=== PATIENT | female | born 1980 | race Caucasian/White ===

== ENCOUNTER 2021-12-23 20:17 | Inpatient (IN) | payer MEDICAID ==
[~2021-12-23] VITALS: Ht 154.9 cm; Wt 79.8 kg
--- NOTE | 2021-12-23 20:24 | NUR ---
[facility] CALLED IV FLUIDS NS; URINE OUTPUT 2-3ML/KILO/HR. EKG Q2-3H IF ABNORMAL QTC OVER 500 MAG SULFATE 1-2G GO LYTELY 1-2L/ HR UNTIL STOOL CLEAR CHEM Q4H, CREATININE, SODIUM, LITHIUM LVLS UNTIL 2 DOWNTRENDING LVLS LITHIUM 4 OR HIGHER; DIALYSIS CHECK DRUG SCREEN
[2021-12-23] MEDS ORDERED: LIDOcaine 2% 10ml TOPICAL JELLY (Urojet) TP ONE (20:35)
[2021-12-23 20:51] LABS: ALANINE AMINOTRANSFERASE 55 U/L (12-78); ALBUMIN 4.4 G/DL (3.4-5.0); ALKALINE PHOSPHATASE 60 IU/L (46-116); ANION GAP 19 (8-16); ASPARTATE AMINO TRANSFERASE 193 U/L (10-37); BILIRUBIN,TOTAL 0.2 MG/DL (0.1-1.0); BLOOD UREA NITROGEN 6 MG/DL (7-18); BUN/CREATININE RATIO 4.6 (6.6-38.0); CALCIUM 8.8 MG/DL (8.5-10.1); CHLORIDE 104 MMOL/L (99-107); GLUCOSE 142 MG/DL (70-104); POTASSIUM 3.9 MMOL/L (3.5-5.1); SODIUM 143 MMOL/L (135-145); TOTAL CARBON DIOXIDE 19.9 MMOL/L (24-32); TOTAL PROTEIN 8.7 G/DL (6.4-8.2); eGFR 45 ML/MIN
[2021-12-23 20:54] LABS: BASOPHILS % (AUTO) 0.1 % (0-1); EOSINOPHILS % (AUTO) 0 % (0-6); HEMATOCRIT 47.5 % (35.0-45.0); HEMOGLOBIN 15.2 g/dl (12.0-16.0); LYMPHOCYTES # (AUTO) 0.9 X10'3 (1.1-4.8); LYMPHOCYTES % (AUTO) 2.9 % (21-51); MEAN CORPUSCULAR HEMOGLOBIN 28.4 PG (27.0-31.0); MEAN CORPUSCULAR HGB CONC 32.1 g/dL (33.0-36.5); MEAN CORPUSCULAR VOLUME 88.4 FL (78-98); MEAN PLATELET VOLUME 6.8 FL (7.4-10.4); MONOCYTES # (AUTO) 1.7 X10'3 (0-0.9); MONOCYTES % (AUTO) 5.3 % (2-12); NEUTROPHILS # (AUTO) 29.1 X10'3 (1.8-7.7); NEUTROPHILS % (AUTO) 91.7 % (42-75); PLATELET COUNT 523 X10'3 (140-440); RED BLOOD COUNT 5.37 X10'6 (4.20-5.60); RED CELL DISTRIBUTION WIDTH 15.1 % (11.5-14.5)
[2021-12-23 20:57] LABS: CLARITY,URINE CLEAR (Clear); COLOR,URINE YELLOW (Yellow); GLUCOSE, URINE NEGATIVE (Neg); KETONES,URINE NEGATIVE (Neg); LEUKOCYTE ESTERASE ,URINE NEGATIVE (Neg); NITRITES, URINE POSITIVE (Neg); OCCULT BLOOD,URINE LARGE (Neg); PH,URINE 6.5 (4.8-8.0); PROTEIN,URINE TRACE mg/dl (Neg); UROBILINOGEN,URINE 0.2 E.U/dL (0.2-1.0)
[2021-12-23 20:58] LABS: WHITE BLOOD COUNT 31.8 X10'3 (4.5-11.0)
[2021-12-23 21:03] LABS: UA COLLECTION TYPE FOLEY CATH
[2021-12-23] MEDS ORDERED: CefTRIAXone/D5W-Rocephin 1gm 50 ML IV ONE (21:10)
[2021-12-23 21:11] LABS: BACTERIA,URINE 4+ /HPF (Neg); SQUAMOUS EPITHELIAL CELL,UR NONE SEEN /LPF (FEW)
[2021-12-23 21:12] LABS: CAL OXALATE CRYSTALS FEW /HPF (NEGATIVE); TRANSITIONAL EPI CELLS,URINE FEW /HPF
[2021-12-23 21:13] LABS: ETHANOL 0.162 GM/DL (0.0-0.010)
[2021-12-23 21:22] LABS: URINE AMPHETAMINE SCREEN NEGATIVE (Neg); URINE BARBITUATE SCREEN NEGATIVE (Neg); URINE BENZODIAZEPINES SCREEN NEGATIVE (Neg); URINE CANNABINOID SCREEN NEGATIVE (Neg); URINE COCAINE SCREEN NEGATIVE (Neg); URINE METHADONE SCREEN NEGATIVE (Neg); URINE OPIATE SCREEN NEGATIVE (Neg); URINE PHENCYCLIDINE SCREEN NEGATIVE (Neg)
[2021-12-23 21:23] LABS: ACETAMINOPHEN < 2.0 UG/ML (10-30)
[2021-12-23 21:26] LABS: TOTAL CELLS COUNTED 100
[2021-12-23 21:28] LABS: PLATELET ESTIMATE INCREASED
[2021-12-23] MEDS ORDERED: normal saline 1000ML IV soln IVB ONE ×2 (21:40→21:45)
[2021-12-23 22:01] LABS: CREATINE KINASE 2574 U/L (26-192)
[2021-12-23] MEDS ORDERED: VANCOMYCIN 1,500MG in normal saline IV soln 300 ML IV ONE (22:30)
--- NOTE | 2021-12-23 23:58 | NUR ---
request made for tele med MD consult awaiting Dr Santana for admit orders on Pt. Pt is in a ST, 120's she is restless and spitting, vs as charted, pt seems confused, tea colored urine noted in meade cath. pt does not not know where she is, NG in place to low intermittent suction. Pt is a know intentional drug overdose with intent to self harm, bedside CROTCH PIECE BASTER in place for pts safety.
[2021-12-24] VITALS (24 sets, daily range): BP systolic 91–132; BP diastolic 3–90
--- NOTE | 2021-12-24 | NUR ---
Received pt from ER, pt being admitted with acute toxic encephalopathy secondary to polysubstance intake of lithium. ETOH, possible Latuda and gabapentin. Pt has a history of PTSD, anxiety and schizoaffective disorder. Pt is aggressive spitting and pulling at lines. pt is in soft wrist restraints, meade catheter to gravity dark poli colored urine. Bed side TIME STUDY TECHNICIAN in place for safety
[2021-12-24] MEDS ORDERED: ondansetron/PF 4mg/2ml inj IV PRN (00:20)
[2021-12-24] MEDS ORDERED: potassium Cl 20mEq/100mL bag 100 ML IV PRN (00:35)
[2021-12-24] MEDS ORDERED: thiamine 100mg/ml 2ml inj. IV ONE (00:35)
[2021-12-24] MEDS ORDERED: dexmedetomidin/NS 400mcg/100ml 100 ML IV SCH (00:35)
[2021-12-24] MEDS ORDERED: dextrose 5%-lactated ringers 1,000 ML IV SCH (00:35)
[2021-12-24] MEDS ORDERED: OLANZapine **IM** 10 mg inj. IM ONE (00:35)
[2021-12-24] MEDS ORDERED: magnesium 2GM in 50ml NS 50 ML IV PRN (00:35)
[2021-12-24] MEDS ORDERED: POTASSIUM BICARB 20meq eff tab 20 MEQ TABLET.EFF PO PRN ×2 (00:35)
[2021-12-24] MEDS ORDERED: magnesium 4gm in 100ml NS 100 ML IV PRN (00:35)
[2021-12-24] MEDS ORDERED: acetaminophen 325mg tablet NG PRN (00:35)
[2021-12-24] MEDS ORDERED: LIDOcaine 2% 10ml TOPICAL JELLY (Urojet) TP ONE (00:35)
[2021-12-24] MEDS ORDERED: LORazepam 2 mg/ml vial IV PRN (00:55)
[2021-12-24] MEDS: dexmedetomidine inj. 400 MCG in normal saline 100ml IV soln 96 ML IV SCH ×3 (01:22→19:08)
[2021-12-24 05:40] LABS: BASOPHILS % (AUTO) 0.1 % (0-1); EOSINOPHILS % (AUTO) 0 % (0-6); HEMATOCRIT 50.6 % (35.0-45.0); HEMOGLOBIN 16.5 g/dl (12.0-16.0); LYMPHOCYTES # (AUTO) 0.8 X10'3 (1.1-4.8); LYMPHOCYTES % (AUTO) 2.9 % (21-51); MEAN CORPUSCULAR HEMOGLOBIN 28.1 PG (27.0-31.0); MEAN CORPUSCULAR HGB CONC 32.7 g/dL (33.0-36.5); MEAN CORPUSCULAR VOLUME 85.9 FL (78-98); MEAN PLATELET VOLUME 6.9 FL (7.4-10.4); MONOCYTES # (AUTO) 1.3 X10'3 (0-0.9); MONOCYTES % (AUTO) 4.5 % (2-12); NEUTROPHILS # (AUTO) 26.4 X10'3 (1.8-7.7); NEUTROPHILS % (AUTO) 92.5 % (42-75); PLATELET COUNT 445 X10'3 (140-440); RED BLOOD COUNT 5.89 X10'6 (4.20-5.60); RED CELL DISTRIBUTION WIDTH 15.2 % (11.5-14.5)
[2021-12-24 05:46] LABS: WHITE BLOOD COUNT 28.5 X10'3 (4.5-11.0)
[2021-12-24 06:00] LABS: ALANINE AMINOTRANSFERASE 496 U/L (12-78); ALBUMIN/GLOBULIN RATIO 0.8 (1.1-1.5); ALKALINE PHOSPHATASE 56 IU/L (46-116); ANION GAP 14 (8-16); BILIRUBIN,TOTAL 0.3 MG/DL (0.1-1.0); BLOOD UREA NITROGEN 11 MG/DL (7-18); BUN/CREATININE RATIO 7.8 (6.6-38.0); CALCIUM 7.9 MG/DL (8.5-10.1); CHLORIDE 107 MMOL/L (99-107); CREATININE 1.41 MG/DL (0.40-0.90); GLUCOSE 153 MG/DL (70-104); MAGNESIUM 1.9 MG/DL (1.5-2.4); POTASSIUM 4.5 MMOL/L (3.5-5.1); SODIUM 140 MMOL/L (135-145); TOTAL CARBON DIOXIDE 19.5 MMOL/L (24-32); TOTAL PROTEIN 6.9 G/DL (6.4-8.2); eGFR 41 ML/MIN
[2021-12-24 06:07] LABS: ASPARTATE AMINO TRANSFERASE 1832 U/L (10-37)
--- NOTE | 2021-12-24 06:13 | NUR ---
report given to rec rn plan of care reviewed
[2021-12-24 06:24] LABS: PLATELET ESTIMATE INCREASED; TOTAL CELLS COUNTED 100
[2021-12-24] MEDS ORDERED: normal saline 1000ml 1,000 ML IV ONE ×3 (08:45→12:40)
[2021-12-24] MEDS: normal saline 1000ml 1,000 ML IV SCH ×4 (08:45→23:45)
[2021-12-24] MEDS: famotidine/PF 10 mg/ml inj IV SCH (08:54)
[2021-12-24] MEDS: thiamine 100mg/ml 2ml inj. IV SCH (08:54)
[2021-12-24] MEDS: piperacillin/tazo 3.375gm/50ml 50 ML IV SCH ×2 (08:54→17:27)
[2021-12-24] MEDS: enoxaparin 40mg/0.4ml syringe SUBCUT SCH (08:54)
[2021-12-24 10:29] LABS: CREATINE KINASE 93663 U/L (26-192)
[2021-12-24] MEDS ORDERED: PEG 3350/Na sulf,bicarb,Cl/KCl oral sol 4 liter bottle PO ONE (10:30)
[2021-12-24 12:16] LABS: ALANINE AMINOTRANSFERASE 515 U/L (12-78); ALBUMIN 2.1 G/DL (3.4-5.0); ALBUMIN/GLOBULIN RATIO 0.6 (1.1-1.5); ALKALINE PHOSPHATASE 43 IU/L (46-116); ANION GAP 8 (8-16); BILIRUBIN,TOTAL 0.4 MG/DL (0.1-1.0); BLOOD UREA NITROGEN 14 MG/DL (7-18); BUN/CREATININE RATIO 9.2 (6.6-38.0); CALCIUM 6.8 MG/DL (8.5-10.1); CHLORIDE 115 MMOL/L (99-107); CREATININE 1.53 MG/DL (0.40-0.90); GLUCOSE 106 MG/DL (70-104); POTASSIUM 4.6 MMOL/L (3.5-5.1); SODIUM 144 MMOL/L (135-145); TOTAL CARBON DIOXIDE 21.2 MMOL/L (24-32); TOTAL PROTEIN 5.5 G/DL (6.4-8.2); eGFR 37 ML/MIN
[2021-12-24 12:18] LABS: MAGNESIUM 1.6 MG/DL (1.5-2.4)
[2021-12-24 12:37] LABS: ASPARTATE AMINO TRANSFERASE 1582 U/L (10-37)
[2021-12-24 12:45] LABS: CLARITY,URINE CLOUDY (Clear); GLUCOSE, URINE NEGATIVE (Neg); KETONES,URINE NEGATIVE (Neg); LEUKOCYTE ESTERASE ,URINE TRACE (Neg); NITRITES, URINE NEGATIVE (Neg); OCCULT BLOOD,URINE LARGE (Neg); PH,URINE 6.5 (4.8-8.0); PROTEIN,URINE 100 mg/dl (Neg); UROBILINOGEN,URINE 0.2 E.U/dL (0.2-1.0)
[2021-12-24 12:46] LABS: COLOR,URINE AMBER (Yellow); UA COLLECTION TYPE NON-SPECIFIED
[2021-12-24 12:57] LABS: CREATINE KINASE 74330 U/L (26-192)
[2021-12-24 13:04] LABS: COARSE GRANULAR CAST >30 /LPF (NEGATIVE); MUCUS STRANDS MODERATE /LPF (Neg); SQUAMOUS EPITHELIAL CELL,UR MODERATE /LPF (FEW)
[2021-12-24 13:05] LABS: BACTERIA,URINE 2+ /HPF (Neg); RBC,URINE 0-2 /HPF (0-2); TRANSITIONAL EPI CELLS,URINE FEW /HPF
[2021-12-24 13:06] LABS: WBC CLUMPS,URINE FEW /HPF (NEGATIVE)
[2021-12-24 13:42] LABS: UA EOSINOPHILS NO EOS /HPF
[2021-12-24 16:28] LABS: ALANINE AMINOTRANSFERASE 556 U/L (12-78); ALBUMIN 2.2 G/DL (3.4-5.0); ALBUMIN/GLOBULIN RATIO 0.7 (1.1-1.5); ALKALINE PHOSPHATASE 41 IU/L (46-116); ANION GAP 7 (8-16); BILIRUBIN,TOTAL 0.5 MG/DL (0.1-1.0); BLOOD UREA NITROGEN 19 MG/DL (7-18); BUN/CREATININE RATIO 12.3 (6.6-38.0); CALCIUM 6.9 MG/DL (8.5-10.1); CHLORIDE 118 MMOL/L (99-107); CREATININE 1.55 MG/DL (0.40-0.90); GLUCOSE 122 MG/DL (70-104); POTASSIUM 4.3 MMOL/L (3.5-5.1); SODIUM 146 MMOL/L (135-145); TOTAL CARBON DIOXIDE 21.4 MMOL/L (24-32); TOTAL PROTEIN 5.4 G/DL (6.4-8.2); eGFR 37 ML/MIN
[2021-12-24 16:32] LABS: ASPARTATE AMINO TRANSFERASE 1632 U/L (10-37)
[2021-12-24] MEDS: ondansetron/PF 4mg/2ml inj IV PRN (17:24)
--- NOTE | 2021-12-24 19:54 | NUR ---
Called and spoke with Dr. Santana to report critical lithium level 3.93. No new orders in regard to level since there is another level for am. Also spoke to him in regards to last lactic acid of 2.2. ordered new lactic acid level for am. See charting for details.
[2021-12-24] MEDS ORDERED: CefTRIAXone 2gm/D5W 50ml BAG 50 ML IV SCH (21:00)
[2021-12-24 22:29] LABS: ALANINE AMINOTRANSFERASE 666 U/L (12-78); ALBUMIN 2.3 G/DL (3.4-5.0); ALBUMIN/GLOBULIN RATIO 0.7 (1.1-1.5); ALKALINE PHOSPHATASE 37 IU/L (46-116); ANION GAP 3 (8-16); BILIRUBIN,TOTAL 0.5 MG/DL (0.1-1.0); BLOOD UREA NITROGEN 23 MG/DL (7-18); BUN/CREATININE RATIO 13.8 (6.6-38.0); CALCIUM 6.8 MG/DL (8.5-10.1); CHLORIDE 118 MMOL/L (99-107); CREATININE 1.67 MG/DL (0.40-0.90); GLUCOSE 104 MG/DL (70-104); POTASSIUM 3.3 MMOL/L (3.5-5.1); SODIUM 147 MMOL/L (135-145); TOTAL CARBON DIOXIDE 26.3 MMOL/L (24-32); TOTAL PROTEIN 5.5 G/DL (6.4-8.2); eGFR 34 ML/MIN
[2021-12-24 22:31] LABS: ASPARTATE AMINO TRANSFERASE 1911 U/L (10-37)
--- NOTE | 2021-12-24 22:35 | NUR ---
Jhon from Poison control called to check on pt. Updated him on latest labs and pt status. He recommended to continue IV fluids and possible dialysis if lithium level continues to go up. Informed him that next rechecks are tomorrow am.
[2021-12-25] VITALS (24 sets, daily range): BP systolic 98–138; BP diastolic 51–85
[2021-12-25] MEDS: piperacillin/tazo 3.375gm/50ml 50 ML IV SCH ×3 (00:50→16:00)
[2021-12-25] MEDS: dexmedetomidine inj. 400 MCG in normal saline 100ml IV soln 96 ML IV SCH ×2 (00:51→05:17)
[2021-12-25] MEDS: normal saline 1000ml 1,000 ML IV SCH ×2 (02:50→08:10)
[2021-12-25 06:10] LABS: BASOPHILS % (AUTO) 0 % (0-1); EOSINOPHILS % (AUTO) 0 % (0-6); HEMOGLOBIN 11.9 g/dl (12.0-16.0); LYMPHOCYTES # (AUTO) 1.3 X10'3 (1.1-4.8); LYMPHOCYTES % (AUTO) 6.7 % (21-51); MEAN CORPUSCULAR HGB CONC 32.3 g/dL (33.0-36.5); MEAN CORPUSCULAR VOLUME 86.6 FL (78-98); MEAN PLATELET VOLUME 7.2 FL (7.4-10.4); MONOCYTES # (AUTO) 1.1 X10'3 (0-0.9); MONOCYTES % (AUTO) 5.5 % (2-12); NEUTROPHILS # (AUTO) 17.2 X10'3 (1.8-7.7); NEUTROPHILS % (AUTO) 87.8 % (42-75); PLATELET COUNT 268 X10'3 (140-440); RED BLOOD COUNT 4.27 X10'6 (4.20-5.60); RED CELL DISTRIBUTION WIDTH 14.9 % (11.5-14.5); WHITE BLOOD COUNT 19.6 X10'3 (4.5-11.0)
[2021-12-25 06:28] LABS: ALANINE AMINOTRANSFERASE 606 U/L (12-78); ALBUMIN 2.1 G/DL (3.4-5.0); ALBUMIN/GLOBULIN RATIO 0.7 (1.1-1.5); ALKALINE PHOSPHATASE 36 IU/L (46-116); ANION GAP 2 (8-16); BILIRUBIN,TOTAL 0.4 MG/DL (0.1-1.0); BLOOD UREA NITROGEN 22 MG/DL (7-18); BUN/CREATININE RATIO 14.2 (6.6-38.0); CHLORIDE 120 MMOL/L (99-107); CREATININE 1.55 MG/DL (0.40-0.90); GLUCOSE 108 MG/DL (70-104); MAGNESIUM 1.7 MG/DL (1.5-2.4); PHOSPHORUS 3.2 MG/DL (2.3-4.5); SODIUM 148 MMOL/L (135-145); TOTAL CARBON DIOXIDE 25.6 MMOL/L (24-32); eGFR 37 ML/MIN
[2021-12-25 06:32] LABS: ASPARTATE AMINO TRANSFERASE 1365 U/L (10-37)
[2021-12-25 06:33] LABS: POTASSIUM 2.9 MMOL/L (3.5-5.1)
--- NOTE | 2021-12-25 06:34 | NUR ---
1800 Patient in room ICU 2040. I have received report from RACHNA Aragon and had the opportunity to ask questions and assume patient care. Sitter at bedside. Restraints in place and needed. Pt had sitter at bedside overnight. Restraints continue to be needed. Pt confused to alert and oriented x2 at times. Several BMs after golytely. 604 Report given to RACHNA Lezama. Questions answered. Drips verified. Restraints remain in place as well as sitter. Precedex remains at 1.2. Pt in no acute distress at time of handoff.
--- NOTE | 2021-12-25 07:00 | NUR ---
Critical Potassium 2.9; Dr. Lozano aware; will replace per protocol.
[2021-12-25] MEDS: thiamine 100mg/ml 2ml inj. IV SCH (07:42)
[2021-12-25] MEDS: famotidine/PF 10 mg/ml inj IV SCH (07:42)
[2021-12-25] MEDS: enoxaparin 40mg/0.4ml syringe SUBCUT SCH (07:43)
[2021-12-25 10:30] LABS: ALANINE AMINOTRANSFERASE 598 U/L (12-78); ALBUMIN/GLOBULIN RATIO 0.6 (1.1-1.5); ALKALINE PHOSPHATASE 38 IU/L (46-116); ANION GAP 0 (8-16); BILIRUBIN,TOTAL 0.4 MG/DL (0.1-1.0); BLOOD UREA NITROGEN 22 MG/DL (7-18); BUN/CREATININE RATIO 15.5 (6.6-38.0); CHLORIDE 120 MMOL/L (99-107); CREATININE 1.42 MG/DL (0.40-0.90); GLUCOSE 81 MG/DL (70-104); POTASSIUM 3.2 MMOL/L (3.5-5.1); SODIUM 144 MMOL/L (135-145); TOTAL PROTEIN 5.1 G/DL (6.4-8.2); eGFR 41 ML/MIN
[2021-12-25 10:33] LABS: ASPARTATE AMINO TRANSFERASE 1293 U/L (10-37)
[2021-12-25] MEDS: sodium chloride 0.45% 1,000 ML IV SCH ×2 (10:49→17:18)
--- NOTE | 2021-12-25 10:55 | NUR ---
Noted pt with EtOH .162 on admit, currently receiving routine Thiamine. D/w MD recommendation for routine MVI and Folic acid, MD agrees. Clinical pharmacist and bedside RN present. Per MD NGT to be discontinued and diet to be advanced to regular. Will continue to follow closely and monitor need for nutrition intervention pending trends in PO intake. Addendum: 12/25/21 at [address] Amended: Links added.
[2021-12-25] MEDS: potassium Cl 20 mEq SR tablet PO PRN ×3 (11:43→20:30)
--- NOTE | 2021-12-25 12:23 | NUR ---
Critical [place] level >4.6, Dr. Lozano and Dr. Renee notified. Per nephrology, will look into Dialysis.
[2021-12-25] MEDS ORDERED: heparin 1,000unit/ml 10ml vial 10 ML IV ONE (12:55)
[2021-12-25] MEDS ORDERED: albumin (human) 25% 100ml IV 100 ML IV PRN (12:55)
[2021-12-25] MEDS ORDERED: normal saline 1000ml 250 ML IV PRN (12:55)
[2021-12-25] MEDS ORDERED: heparin 1,000 units/ml 10ml inj HE ONE ×2 (13:10)
[2021-12-25] MEDS ORDERED: PRAZ1CAP5 PO (15:39)
[2021-12-25] MEDS ORDERED: IBUP-1985 PO (15:39)
[2021-12-25] MEDS ORDERED: LURA20TA PO (15:39)
[2021-12-25] MEDS ORDERED: GABA600T13 PO (15:39)
[2021-12-25] MEDS ORDERED: LIT300C PO (15:39)
[2021-12-25] MEDS ORDERED: CYCL-1 PO (15:39)
[2021-12-25] MEDS ORDERED: HYDR-3686 PO (15:39)
--- NOTE | 2021-12-25 16:54 | NUR ---
Patient receiving Dialysis; hold Zosyn and recheck scheduled [place] level and other labs for the end of dialysis per MD.
--- NOTE | 2021-12-25 18:20 | NUR ---
Patient in room ICU 2040. I have received report from RACHNA Lezama and had the opportunity to ask questions and assume patient care. Patients boyfriend , Michi, at bedside. HD in progress by industrial sales representative. Patient is cooporative and pleasent. Bedside sitter at bedside
--- NOTE | 2021-12-25 18:22 | NUR ---
Problems reprioritized. Patient report given, questions answered & plan of care reviewed with Sanjuanita BRISCOE.
[2021-12-25 19:42] LABS: APTT 39 SECONDS (22-32)
[2021-12-25 19:48] LABS: ALANINE AMINOTRANSFERASE 632 U/L (12-78); ALBUMIN 2.2 G/DL (3.4-5.0); ALBUMIN/GLOBULIN RATIO 0.7 (1.1-1.5); ALKALINE PHOSPHATASE 49 IU/L (46-116); ANION GAP 5 (8-16); BILIRUBIN,TOTAL 0.5 MG/DL (0.1-1.0); BLOOD UREA NITROGEN 6 MG/DL (7-18); BUN/CREATININE RATIO 9.2 (6.6-38.0); CALCIUM 7.5 MG/DL (8.5-10.1); CHLORIDE 104 MMOL/L (99-107); CREATININE 0.65 MG/DL (0.40-0.90); GLUCOSE 80 MG/DL (70-104); POTASSIUM 3.3 MMOL/L (3.5-5.1); SODIUM 139 MMOL/L (135-145); TOTAL CARBON DIOXIDE 29.6 MMOL/L (24-32); TOTAL PROTEIN 5.4 G/DL (6.4-8.2); eGFR > 90 ML/MIN
[2021-12-25 19:49] LABS: ASPARTATE AMINO TRANSFERASE 1235 U/L (10-37)
[2021-12-25] MEDS ORDERED: bumetanide 0.25mg/ml 4ml vial IV SCH (20:10)
--- NOTE | 2021-12-25 20:19 | NUR ---
Patient assessed, found to have severe pain and tightness to bilateral lower extremities. Pedal pulses are present and palpable with good capillary refill. Dr. Santana called and notified of change in patient condition. Orders received for vascular doppler arterial and venous bilateral lower extremities. Order new CPK level. MD wants patient legs propped up on pillows now. Bumex 2mg IV once now. decrease fluids to 75 ml/hr.
[2021-12-25] MEDS ORDERED: gelatin sponge, absorbable (Gelfoam 100) sponge TP ONE (20:20)
--- NOTE | 2021-12-25 21:00 | NUR ---
Cesar catheter site to right IJ re dressed. Dressing saturated site oozing with large incomplete clot in place. Gelatin sponge placed at insertion site and new dressing applied.
[2021-12-25 21:57] LABS: CREATINE KINASE 43965 U/L (26-192)
--- NOTE | 2021-12-25 22:00 | NUR ---
bio medical technician at bedside for doppler study. Findings of DVT to right proximal posterior tibial vein. Patient extremely agitated and unable to remain still for the study, crying out in pain and discomfort. Confused speech pattern noted. Dr. Santana called and findings reported. Order for Heparin drip for DVT protocol and Precedex.
[2021-12-25] MEDS ORDERED: heparin 10,000 units/1 ML INJ IV ONE (22:15)
[2021-12-25] MEDS ORDERED: HEPARIN SOD,PORK IN 0.45% NACL 250 ML IV SCH (22:15)
[2021-12-25] MEDS ORDERED: heparin 10,000 units/1 ML INJ IV PRN (22:15)
[2021-12-25] MEDS: dexmedetomidin/NS 400mcg/100ml 100 ML IV SCH (22:39)
[2021-12-25] MEDS: ondansetron/PF 4mg/2ml inj IV PRN (22:54)
[2021-12-26] VITALS (23 sets, daily range): BP systolic 84–129; BP diastolic 49–83
[2021-12-26] MEDS: piperacillin/tazo 3.375gm/50ml 50 ML IV SCH ×4 (00:18→23:06)
--- NOTE | 2021-12-26 02:11 | NUR ---
Patient appears to be resting comfortably. Will awaken/ startle with any patient care activities. Patient is able to settle back down quickly. Sitter at bedside.
[2021-12-26] MEDS: sodium chloride 0.45% 1,000 ML IV SCH ×2 (03:12→09:01)
--- NOTE | 2021-12-26 05:31 | NUR ---
Cesar dressing saturated with blood. Dressing changed, gel foam placed. new PIV to right wrist 20 ga.
[2021-12-26 06:07] LABS: ALANINE AMINOTRANSFERASE 557 U/L (12-78); ALBUMIN 2.2 G/DL (3.4-5.0); ALBUMIN/GLOBULIN RATIO 0.7 (1.1-1.5); ALKALINE PHOSPHATASE 58 IU/L (46-116); ANION GAP 1 (8-16); ASPARTATE AMINO TRANSFERASE 925 U/L (10-37); BILIRUBIN,TOTAL 0.7 MG/DL (0.1-1.0); BLOOD UREA NITROGEN 10 MG/DL (7-18); BUN/CREATININE RATIO 7.9 (6.6-38.0); CALCIUM 7.2 MG/DL (8.5-10.1); CHLORIDE 108 MMOL/L (99-107); CREATININE 1.26 MG/DL (0.40-0.90); GLUCOSE 92 MG/DL (70-104); MAGNESIUM 1.7 MG/DL (1.5-2.4); PHOSPHORUS 3.1 MG/DL (2.3-4.5); POTASSIUM 3.5 MMOL/L (3.5-5.1); SODIUM 142 MMOL/L (135-145); TOTAL CARBON DIOXIDE 32.9 MMOL/L (24-32); TOTAL PROTEIN 5.3 G/DL (6.4-8.2); eGFR 47 ML/MIN
[2021-12-26 06:17] LABS: BASOPHILS % (AUTO) 0.2 % (0-1); EOSINOPHILS # (AUTO) 0.1 X10'3 (0-0.9); EOSINOPHILS % (AUTO) 0.5 % (0-6); HEMATOCRIT 31.8 % (35.0-45.0); HEMOGLOBIN 10.5 g/dl (12.0-16.0); LYMPHOCYTES # (AUTO) 1.8 X10'3 (1.1-4.8); LYMPHOCYTES % (AUTO) 11.4 % (21-51); MEAN CORPUSCULAR HEMOGLOBIN 28.3 PG (27.0-31.0); MEAN CORPUSCULAR HGB CONC 33.1 g/dL (33.0-36.5); MEAN CORPUSCULAR VOLUME 85.7 FL (78-98); MEAN PLATELET VOLUME 7.5 FL (7.4-10.4); MONOCYTES # (AUTO) 0.6 X10'3 (0-0.9); MONOCYTES % (AUTO) 3.7 % (2-12); NEUTROPHILS # (AUTO) 13.2 X10'3 (1.8-7.7); NEUTROPHILS % (AUTO) 84.2 % (42-75); PLATELET COUNT 214 X10'3 (140-440); RED BLOOD COUNT 3.71 X10'6 (4.20-5.60); RED CELL DISTRIBUTION WIDTH 14.5 % (11.5-14.5); WHITE BLOOD COUNT 15.7 X10'3 (4.5-11.0)
--- NOTE | 2021-12-26 06:21 | NUR ---
Problems reprioritized. Patient report given, questions answered & plan of care reviewed with RACHNA Mackay.
--- NOTE | 2021-12-26 06:30 | NUR ---
PTT came back at 122. Heparin turned off per protocol. Will draw PTT and turn back on at 0830.
[2021-12-26 07:32] LABS: CREATINE KINASE 34936 U/L (26-192)
[2021-12-26] MEDS: thiamine 100mg/ml 2ml inj. IV SCH (08:33)
[2021-12-26] MEDS: famotidine/PF 10 mg/ml inj IV SCH (08:33)
[2021-12-26] MEDS: dexmedetomidin/NS 400mcg/100ml 100 ML IV SCH (09:05)
--- NOTE | 2021-12-26 09:42 | NUR ---
[place] level 4.[address] Renee. He will order Dialysis.
[2021-12-26] MEDS ORDERED: heparin 1,000unit/ml 10ml vial 10 ML IV ONE (10:15)
[2021-12-26] MEDS ORDERED: normal saline 1000ml 250 ML IV PRN (10:15)
[2021-12-26] MEDS ORDERED: albumin (human) 25% 100ml IV 100 ML IV PRN (10:15)
[2021-12-26] MEDS ORDERED: heparin 1,000 units/ml 10ml inj HE ONE ×2 (10:20)
--- NOTE | 2021-12-26 12:28 | NUR ---
Pt still not appropriate for conversation/psychosocial assessment. Conferred with CM to ensure pt is on suicide precautions and has sitter. [facility] recommends pt be referred to [facility] for evaluation once she is medically clear. Addendum: 12/26/21 at 1230 by Karyna Styles SS Amended: Links added.
--- NOTE | 2021-12-26 14:30 | NUR ---
Initial: Pt admit DX sepsis, UTI, rhabdomyolysis, [place] toxicity, and intentional meds OD w/ etoh 0.162 also on admit per EMR. Pt to receive HD again today given increasing [place] levels per RN at rounds. Pt receiving routine thiamine w/ PO 25-50% two meals refusing third past 24 hours on regular diet no issues chewing/swallowing per EMR/RN this AM. Per RN, pt in significant pain last night which likely impacted refusal of dinner tray. Pt remains AOx2 receiving minimum assistance w/ meals per EMR. LBM 12/26 following golytely 12/24 per EMR. Will monitor for PO trends and further nutrition intervention needs this admit. Rec: 1. continue regular diet; encourage PO 2. monitor PO trends for ONS needs 3. routine thiamine, folic acid, and MVI for etoh 4. bowel care per rx 5. weekly wts Addendum: 12/26/21 at [address] Amended: Links added.
--- NOTE | 2021-12-26 17:25 | NUR ---
will bring in [facility] when he goes back home and returns to town. Hopefully tomorrow he said.
--- NOTE | 2021-12-26 18:15 | NUR ---
RECEIVED REPORT FROM OUTGOING NURSE. PT IS ALERT AND ORIENTEDX3. RESTING IN BED AND PT STATED SHE WAS ANXIOUS AT THE MOMENT. MILD TREMORS ON BOTH HANDS NOTED. EXPLAINED PAIN AND ANXIETY MGMT. SEIZURE PRECAUTIONS MAINTAINED. SITTER AT BEDSIDE FOR SAFETY. WILL CONT TO MONITOR.
[2021-12-26] MEDS: hydrOXYzine 25 MG tablet PO PRN (18:55)
[2021-12-26] MEDS: HYDROcodone/acetaminophen 5mg/325mg tablet PO PRN (18:55)
[2021-12-26] MEDS: LURASIDONE 20 MG PO SCH (21:00)
--- NOTE | 2021-12-26 21:50 | NUR ---
STILL OOZING FROM RT IJ HD CATHETER. CHANGED DRESSING. BEING CONFUSED. REORIENTATION GIVEN FREQ. SITTER AT BEDSIDE.
--- NOTE | 2021-12-26 22:08 | NUR ---
TALKED TO POISON CONTROL AND GAVE THEM UPDATES. THEY SUGGESTED TO DRAW LITHIUM LEVEL NOW INSTEAD OF DOING IN AM.
[2021-12-27] VITALS (23 sets, daily range): BP systolic 87–112; BP diastolic 48–69
[2021-12-27] MEDS ORDERED: gelatin sponge, absorbable (Gelfoam 100) sponge TP ONE (00:55)
[2021-12-27] MEDS: HYDROcodone/acetaminophen 5mg/325mg tablet PO PRN ×3 (03:46→16:20)
[2021-12-27] MEDS: sodium chloride 0.45% 1,000 ML IV SCH ×2 (05:52→21:59)
[2021-12-27 06:16] LABS: BASOPHILS % (AUTO) 0.2 % (0-1); EOSINOPHILS # (AUTO) 0.3 X10'3 (0-0.9); HEMATOCRIT 29.6 % (35.0-45.0); HEMOGLOBIN 9.6 g/dl (12.0-16.0); LYMPHOCYTES % (AUTO) 6.6 % (21-51); MEAN CORPUSCULAR HGB CONC 32.3 g/dL (33.0-36.5); MEAN CORPUSCULAR VOLUME 86.9 FL (78-98); MEAN PLATELET VOLUME 7.2 FL (7.4-10.4); MONOCYTES # (AUTO) 0.8 X10'3 (0-0.9); MONOCYTES % (AUTO) 5.6 % (2-12); NEUTROPHILS # (AUTO) 12.5 X10'3 (1.8-7.7); NEUTROPHILS % (AUTO) 85.6 % (42-75); PLATELET COUNT 197 X10'3 (140-440); RED BLOOD COUNT 3.41 X10'6 (4.20-5.60); RED CELL DISTRIBUTION WIDTH 14.6 % (11.5-14.5); WHITE BLOOD COUNT 14.6 X10'3 (4.5-11.0)
--- NOTE | 2021-12-27 06:20 | NUR ---
NOT IN DISTRESS NOTED. REPORT GIVEN TO ONCOMING NURSE.
[2021-12-27 06:25] LABS: ALANINE AMINOTRANSFERASE 498 U/L (12-78); ALBUMIN 2.4 G/DL (3.4-5.0); ALBUMIN/GLOBULIN RATIO 0.8 (1.1-1.5); ALKALINE PHOSPHATASE 70 IU/L (46-116); ANION GAP 2 (8-16); ASPARTATE AMINO TRANSFERASE 622 U/L (10-37); BILIRUBIN,TOTAL 0.6 MG/DL (0.1-1.0); BLOOD UREA NITROGEN 10 MG/DL (7-18); BUN/CREATININE RATIO 7.5 (6.6-38.0); CALCIUM 7.6 MG/DL (8.5-10.1); CHLORIDE 106 MMOL/L (99-107); CREATININE 1.33 MG/DL (0.40-0.90); GLUCOSE 111 MG/DL (70-104); MAGNESIUM 1.9 MG/DL (1.5-2.4); PHOSPHORUS 2.7 MG/DL (2.3-4.5); POTASSIUM 3.5 MMOL/L (3.5-5.1); SODIUM 142 MMOL/L (135-145); TOTAL CARBON DIOXIDE 33.6 MMOL/L (24-32); TOTAL PROTEIN 5.4 G/DL (6.4-8.2); eGFR 44 ML/MIN
[2021-12-27] MEDS: ondansetron/PF 4mg/2ml inj IV PRN ×2 (08:16→17:33)
[2021-12-27] MEDS: hydrOXYzine 25 MG tablet PO PRN ×3 (08:17→23:41)
[2021-12-27] MEDS: gabapentin 300mg capsule PO SCH (08:18)
[2021-12-27] MEDS: enoxaparin 40mg/0.4ml syringe SUBCUT SCH (08:19)
[2021-12-27] MEDS: famotidine/PF 10 mg/ml inj IV SCH (08:19)
[2021-12-27] MEDS: thiamine 100mg/ml 2ml inj. IV SCH (08:19)
[2021-12-27] MEDS: piperacillin/tazo 3.375gm/50ml 50 ML IV SCH ×3 (08:40→23:41)
[2021-12-27 09:33] LABS: CREATINE KINASE 16187 U/L (26-192)
[2021-12-27 11:19] LABS: HBSAG SCREEN Negative (Negative)
[2021-12-27] MEDS ORDERED: haloperidol lactate 5mg/ml inj IM PRN (18:00)
[2021-12-27] MEDS ORDERED: haloperidol 5mg tablet PO PRN (18:00)
[2021-12-27] MEDS ORDERED: LORazepam 2 mg/ml vial IV PRN (18:00)
[2021-12-27] MEDS: chlordiazePOXIDE 25mg capsule PO SCH ×2 (18:14→20:00)
[2021-12-27] MEDS: LURASIDONE 20 MG PO SCH (20:01)
--- NOTE | 2021-12-27 22:16 | NUR ---
PT IS RESTING IN BED WITHOUT DISTRESS. SITTER AT BEDSIDE FOR SAFETY. REPORT GIVEN TO DAIANA BRISCOE.
[2021-12-28] VITALS (20 sets, daily range): BP systolic 101–138; BP diastolic 54–87
[2021-12-28] MEDS: HYDROcodone/acetaminophen 5mg/325mg tablet PO PRN ×4 (00:54→20:55)
[2021-12-28] MEDS: chlordiazePOXIDE 25mg capsule PO SCH ×4 (01:54→19:35)
[2021-12-28] MEDS: ondansetron/PF 4mg/2ml inj IV PRN ×2 (03:20→12:27)
[2021-12-28] MEDS: proCHLORperazine 10 MG/2 ml inj IV PRN ×3 (03:53→16:39)
--- NOTE | 2021-12-28 06:30 | NUR ---
Patient in room ICU 2040. I have received report from Arlyn BRISCOE and had the opportunity to ask questions and assume patient care. Pt semi fowlers in bed, sitter at bedside, pt alert and oriented x4. pt endorses improved mood, decreased anxiety. Pt endorses fleeting thoughts of SI, but states "they just fly through my brain. i have no desire to act on thoughts. they are of overdose. after this experience I would never attempt again." discussed coping tools, anxiety grouding exercises. pt somewhat receptive. reinfocement needed. safety measures in place.
--- NOTE | 2021-12-28 06:38 | NUR ---
Problems reprioritized. Patient report given, questions answered & plan of care reviewed with LUZ MARIA BRISCOE.
[2021-12-28 06:50] LABS: BASOPHILS # (AUTO) 0.1 X10'3 (0-0.2); BASOPHILS % (AUTO) 0.3 % (0-1); EOSINOPHILS # (AUTO) 0.5 X10'3 (0-0.9); EOSINOPHILS % (AUTO) 2.7 % (0-6); HEMATOCRIT 35.3 % (35.0-45.0); HEMOGLOBIN 11.7 g/dl (12.0-16.0); LYMPHOCYTES # (AUTO) 1.6 X10'3 (1.1-4.8); LYMPHOCYTES % (AUTO) 8.2 % (21-51); MEAN CORPUSCULAR VOLUME 84.9 FL (78-98); MEAN PLATELET VOLUME 7.7 FL (7.4-10.4); MONOCYTES # (AUTO) 0.9 X10'3 (0-0.9); NEUTROPHILS # (AUTO) 15.8 X10'3 (1.8-7.7); NEUTROPHILS % (AUTO) 83.8 % (42-75); PLATELET COUNT 234 X10'3 (140-440); RED BLOOD COUNT 4.17 X10'6 (4.20-5.60); RED CELL DISTRIBUTION WIDTH 14.6 % (11.5-14.5); WHITE BLOOD COUNT 18.9 X10'3 (4.5-11.0)
[2021-12-28 07:13] LABS: ALANINE AMINOTRANSFERASE 400 U/L (12-78); ALBUMIN 2.2 G/DL (3.4-5.0); ALBUMIN/GLOBULIN RATIO 0.7 (1.1-1.5); ALKALINE PHOSPHATASE 98 IU/L (46-116); ANION GAP 7 (8-16); ASPARTATE AMINO TRANSFERASE 333 U/L (10-37); BILIRUBIN,TOTAL 0.5 MG/DL (0.1-1.0); BLOOD UREA NITROGEN 9 MG/DL (7-18); BUN/CREATININE RATIO 7.4 (6.6-38.0); CALCIUM 8.5 MG/DL (8.5-10.1); CHLORIDE 102 MMOL/L (99-107); CREATININE 1.21 MG/DL (0.40-0.90); GLUCOSE 107 MG/DL (70-104); MAGNESIUM 2.1 MG/DL (1.5-2.4); PHOSPHORUS 3.6 MG/DL (2.3-4.5); POTASSIUM 3.4 MMOL/L (3.5-5.1); SODIUM 137 MMOL/L (135-145); TOTAL CARBON DIOXIDE 28.5 MMOL/L (24-32); TOTAL PROTEIN 5.4 G/DL (6.4-8.2); eGFR 49 ML/MIN
[2021-12-28 07:14] LABS: CREATINE KINASE 6434 U/L (26-192)
[2021-12-28] MEDS: famotidine/PF 10 mg/ml inj IV SCH (08:53)
[2021-12-28] MEDS: thiamine 100mg/ml 2ml inj. IV SCH (08:53)
[2021-12-28] MEDS: gabapentin 300mg capsule PO SCH (08:53)
[2021-12-28] MEDS: piperacillin/tazo 3.375gm/50ml 50 ML IV SCH ×3 (08:54→16:07)
[2021-12-28] MEDS: enoxaparin 40mg/0.4ml syringe SUBCUT SCH (08:54)
[2021-12-28] MEDS: sodium chloride 0.45% 1,000 ML IV SCH ×2 (08:55→21:52)
--- NOTE | 2021-12-28 11:49 | NUR ---
Dr. Gracia to see pt new clarification of orders of thiamine and famotidine to p.o. route, change lavon to olivia Stafford for PT.
[2021-12-28] MEDS ORDERED: LURA60TA PO (13:25)
--- NOTE | 2021-12-28 14:12 | NUR ---
Pt with new fluid filled blisters to BLE, and change to urine. Dr. Basil Jones. "RE: Sanjuanita Liu: 2040. Sudden appearance of fluid filled blisters on BLE. Also, urine milky white s/p meade catheter removal with urgency and frequency. - Bibiana BRISCOE ICU #[id number]" pt denies itchiness or pain to blisters. Addendum: 12/28/21 at 1413 by Bibiana Harvey RN p.o. fluids encouraged.
[2021-12-28] MEDS: hydrOXYzine 25 MG tablet PO PRN (16:08)
--- NOTE | 2021-12-28 16:30 | NUR ---
poison control called for update. con't POC per poison control. will continue to check in until lithium level <1.2.
--- NOTE | 2021-12-28 16:42 | NUR ---
meade cath d/c'd at 930am. tip intact. p.o. fluids encouraged. pt voided by noon, however urine purulent white. continued to encourage p.o. fluids. two more additional episodes of milky white urine until urine cleared. urine now light yellow, non malodorous. pt endorses urgency but frequency has subsided. afebrile.
--- NOTE | 2021-12-28 17:15 | NUR ---
Patient report given, questions answered & plan of care reviewed with Kia BRISCOE in preperation for moving pt to room 3010.
[2021-12-28] MEDS: potassium Cl 20 mEq SR tablet PO PRN ×2 (17:19→20:31)
--- NOTE | 2021-12-28 17:52 | NUR ---
pt's latuda dose handed to rubia BRISCOE on Telemetry floor to be administered after pt eats
--- NOTE | 2021-12-28 18:00 | NUR ---
Patient arrived from ICU. Vitals taken and all are stable. Settled patient into room and report given to Kyra BRISCOE. Patient was still eating her supper so latuda given to next nurse to administer
[2021-12-29] VITALS (7 sets, daily range): BP systolic 115–126; BP diastolic 75–91
[2021-12-29] MEDS: chlordiazePOXIDE 25mg capsule PO SCH ×4 (02:12→19:59)
[2021-12-29] MEDS: sodium chloride 0.45% 1,000 ML IV SCH (02:26)
[2021-12-29] MEDS: potassium Cl 20 mEq SR tablet PO PRN (04:35)
[2021-12-29] MEDS: gabapentin 300mg capsule PO SCH (07:35)
[2021-12-29] MEDS: piperacillin/tazo 3.375gm/50ml 50 ML IV SCH ×2 (07:35→17:00)
[2021-12-29] MEDS: thiamine 100mg tablet PO SCH (07:36)
[2021-12-29] MEDS: famotidine 20mg tablet PO SCH (07:36)
[2021-12-29] MEDS: enoxaparin 40mg/0.4ml syringe SUBCUT SCH (07:37)
[2021-12-29] MEDS: HYDROcodone/acetaminophen 5mg/325mg tablet PO PRN ×3 (07:37→19:59)
[2021-12-29 08:38] LABS: CREATINE KINASE 8534 U/L (26-192)
--- NOTE | 2021-12-29 08:50 | NUR ---
Reassessment: Pt continues on Regular diet w/ improvement in PO intake yesterday 12/28, had 75% of meals. If PO trends continue then pt will likely be meeting est needs. Pt documented as A&O x 4 now and independent w/ meals. No further HD per nephrology. LBM 12/27. Will continue to monitor. Rec: 1. continue regular diet; encourage PO 2. monitor PO trends for ONS needs 3. routine thiamine, folic acid, and MVI for etoh 4. bowel care per rx 5. weekly wts Addendum: 12/29/21 at [address] Amended: Links added.
[2021-12-29 09:24] LABS: BASOPHILS # (AUTO) 0.1 X10'3 (0-0.2); BASOPHILS % (AUTO) 0.4 % (0-1); EOSINOPHILS # (AUTO) 0.6 X10'3 (0-0.9); HEMATOCRIT 36.9 % (35.0-45.0); LYMPHOCYTES # (AUTO) 2.4 X10'3 (1.1-4.8); LYMPHOCYTES % (AUTO) 12.7 % (21-51); MEAN CORPUSCULAR HEMOGLOBIN 27.7 PG (27.0-31.0); MEAN CORPUSCULAR HGB CONC 32.6 g/dL (33.0-36.5); MEAN CORPUSCULAR VOLUME 85.1 FL (78-98); MEAN PLATELET VOLUME 8.3 FL (7.4-10.4); MONOCYTES # (AUTO) 1.2 X10'3 (0-0.9); MONOCYTES % (AUTO) 6.2 % (2-12); NEUTROPHILS # (AUTO) 14.5 X10'3 (1.8-7.7); NEUTROPHILS % (AUTO) 77.7 % (42-75); PLATELET COUNT 234 X10'3 (140-440); RED BLOOD COUNT 4.34 X10'6 (4.20-5.60); RED CELL DISTRIBUTION WIDTH 14.2 % (11.5-14.5); WHITE BLOOD COUNT 18.7 X10'3 (4.5-11.0)
[2021-12-29 09:39] LABS: ALANINE AMINOTRANSFERASE 492 U/L (12-78); ALBUMIN 2.5 G/DL (3.4-5.0); ALBUMIN/GLOBULIN RATIO 0.8 (1.1-1.5); ALKALINE PHOSPHATASE 114 IU/L (46-116); ANION GAP 8 (8-16); ASPARTATE AMINO TRANSFERASE 384 U/L (10-37); BILIRUBIN,TOTAL 0.4 MG/DL (0.1-1.0); BLOOD UREA NITROGEN 10 MG/DL (7-18); BUN/CREATININE RATIO 9.8 (6.6-38.0); CALCIUM 8.8 MG/DL (8.5-10.1); CHLORIDE 105 MMOL/L (99-107); CREATININE 1.02 MG/DL (0.40-0.90); GLUCOSE 122 MG/DL (70-104); POTASSIUM 3.9 MMOL/L (3.5-5.1); SODIUM 136 MMOL/L (135-145); TOTAL CARBON DIOXIDE 22.9 MMOL/L (24-32); TOTAL PROTEIN 5.7 G/DL (6.4-8.2); eGFR 59 ML/MIN
[2021-12-29] MEDS ORDERED: LORazepam 2 mg/ml vial IV PRN (18:00)
--- NOTE | 2021-12-29 18:00 | NUR ---
Received form from pharmacy requesting patient to bring in her latuda from home--patient's boyfriend isn't available today to bring more in for the pharmacy. Paged Dr Gracia to ask if he wants us to have him bring it tomorrow or to D/C the order because the form states it is a med error if not administered. No callback received. Will relay to oncoming shift to follow up and ask again tomorrow
[2021-12-29] MEDS: hydrOXYzine 25 MG tablet PO PRN (23:07)
[2021-12-30] MEDS: piperacillin/tazo 3.375gm/50ml 50 ML IV SCH ×3 (00:12→16:12)
[2021-12-30] MEDS: sodium chloride 0.45% 1,000 ML IV SCH ×2 (00:12→14:03)
[2021-12-30 02:00] VITALS: BP 109/68
[2021-12-30] MEDS: chlordiazePOXIDE 25mg capsule PO SCH ×4 (03:40→19:26)
[2021-12-30] MEDS: HYDROcodone/acetaminophen 5mg/325mg tablet PO PRN ×4 (04:59→19:28)
[2021-12-30 06:00] VITALS: BP 113/77
[2021-12-30 07:52] LABS: BASOPHILS # (AUTO) 0.1 X10'3 (0-0.2); BASOPHILS % (AUTO) 0.7 % (0-1); EOSINOPHILS # (AUTO) 0.5 X10'3 (0-0.9); EOSINOPHILS % (AUTO) 4.7 % (0-6); HEMATOCRIT 29.9 % (35.0-45.0); HEMOGLOBIN 9.8 g/dl (12.0-16.0); LYMPHOCYTES # (AUTO) 2.3 X10'3 (1.1-4.8); LYMPHOCYTES % (AUTO) 20.8 % (21-51); MEAN CORPUSCULAR HEMOGLOBIN 28.1 PG (27.0-31.0); MEAN CORPUSCULAR HGB CONC 32.7 g/dL (33.0-36.5); MEAN PLATELET VOLUME 8.3 FL (7.4-10.4); MONOCYTES # (AUTO) 1.1 X10'3 (0-0.9); MONOCYTES % (AUTO) 9.6 % (2-12); NEUTROPHILS # (AUTO) 7.1 X10'3 (1.8-7.7); NEUTROPHILS % (AUTO) 64.2 % (42-75); PLATELET COUNT 219 X10'3 (140-440); RED BLOOD COUNT 3.48 X10'6 (4.20-5.60); RED CELL DISTRIBUTION WIDTH 14.6 % (11.5-14.5)
[2021-12-30 08:16] LABS: ALANINE AMINOTRANSFERASE 413 U/L (12-78); ALBUMIN 2.3 G/DL (3.4-5.0); ALBUMIN/GLOBULIN RATIO 0.8 (1.1-1.5); ALKALINE PHOSPHATASE 65 IU/L (46-116); ANION GAP 6 (8-16); ASPARTATE AMINO TRANSFERASE 282 U/L (10-37); BILIRUBIN,TOTAL 0.4 MG/DL (0.1-1.0); BLOOD UREA NITROGEN 13 MG/DL (7-18); BUN/CREATININE RATIO 14.1 (6.6-38.0); CALCIUM 8.7 MG/DL (8.5-10.1); CHLORIDE 109 MMOL/L (99-107); CREATININE 0.92 MG/DL (0.40-0.90); GLUCOSE 108 MG/DL (70-104); POTASSIUM 3.9 MMOL/L (3.5-5.1); SODIUM 142 MMOL/L (135-145); TOTAL PROTEIN 5.1 G/DL (6.4-8.2); eGFR 67 ML/MIN
[2021-12-30 08:41] LABS: CREATINE KINASE 5238 U/L (26-192)
[2021-12-30] MEDS: gabapentin 300mg capsule PO SCH (08:45)
[2021-12-30] MEDS: famotidine 20mg tablet PO SCH (08:45)
[2021-12-30] MEDS: thiamine 100mg tablet PO SCH (08:46)
[2021-12-30] MEDS: enoxaparin 40mg/0.4ml syringe SUBCUT SCH (08:46)
[2021-12-30] MEDS: LORazepam 1 MG tablet PO PRN ×2 (09:12→16:20)
[2021-12-30] MEDS: nicotine 14mg patch - 24hr TD SCH (10:25)
[2021-12-30 11:00] VITALS: BP 122/74
[2021-12-30 15:00] VITALS: BP 132/97
[2021-12-30 18:00] VITALS: BP 127/87
[2021-12-30 22:00] VITALS: BP 106/66
[2021-12-31] MEDS: piperacillin/tazo 3.375gm/50ml 50 ML IV SCH ×2 (00:11→08:45)
[2021-12-31] MEDS: chlordiazePOXIDE 25mg capsule PO SCH ×4 (01:50→19:24)
[2021-12-31 02:00] VITALS: BP 116/60
[2021-12-31] MEDS: sodium chloride 0.45% 1,000 ML IV SCH ×3 (03:12→23:39)
[2021-12-31 06:06] VITALS: BP 120/63
[2021-12-31 08:27] LABS: CREATINE KINASE 2096 U/L (26-192)
[2021-12-31] MEDS: nicotine 14mg patch - 24hr TD SCH (08:45)
[2021-12-31] MEDS: thiamine 100mg tablet PO SCH (08:46)
[2021-12-31] MEDS: famotidine 20mg tablet PO SCH (08:46)
[2021-12-31] MEDS: gabapentin 300mg capsule PO SCH (08:46)
[2021-12-31] MEDS: enoxaparin 40mg/0.4ml syringe SUBCUT SCH (08:46)
[2021-12-31 09:28] LABS: BASOPHILS # (AUTO) 0.1 X10'3 (0-0.2); BASOPHILS % (AUTO) 0.9 % (0-1); EOSINOPHILS # (AUTO) 0.5 X10'3 (0-0.9); EOSINOPHILS % (AUTO) 3.9 % (0-6); HEMATOCRIT 30.8 % (35.0-45.0); HEMOGLOBIN 10.2 g/dl (12.0-16.0); LYMPHOCYTES # (AUTO) 2.3 X10'3 (1.1-4.8); LYMPHOCYTES % (AUTO) 19.9 % (21-51); MEAN CORPUSCULAR HGB CONC 33.1 g/dL (33.0-36.5); MEAN CORPUSCULAR VOLUME 84.6 FL (78-98); MONOCYTES # (AUTO) 1.2 X10'3 (0-0.9); MONOCYTES % (AUTO) 9.9 % (2-12); NEUTROPHILS # (AUTO) 7.7 X10'3 (1.8-7.7); NEUTROPHILS % (AUTO) 65.4 % (42-75); PLATELET COUNT 319 X10'3 (140-440); RED BLOOD COUNT 3.65 X10'6 (4.20-5.60); RED CELL DISTRIBUTION WIDTH 14.8 % (11.5-14.5); WHITE BLOOD COUNT 11.7 X10'3 (4.5-11.0)
[2021-12-31 09:36] LABS: ALANINE AMINOTRANSFERASE 465 U/L (12-78); ALBUMIN 2.3 G/DL (3.4-5.0); ALBUMIN/GLOBULIN RATIO 0.8 (1.1-1.5); ALKALINE PHOSPHATASE 73 IU/L (46-116); ANION GAP 7 (8-16); ASPARTATE AMINO TRANSFERASE 280 U/L (10-37); BILIRUBIN,TOTAL 0.3 MG/DL (0.1-1.0); BLOOD UREA NITROGEN 13 MG/DL (7-18); BUN/CREATININE RATIO 13.1 (6.6-38.0); CALCIUM 8.7 MG/DL (8.5-10.1); CHLORIDE 105 MMOL/L (99-107); CREATININE 0.99 MG/DL (0.40-0.90); GLUCOSE 113 MG/DL (70-104); POTASSIUM 3.5 MMOL/L (3.5-5.1); SODIUM 137 MMOL/L (135-145); TOTAL PROTEIN 5.2 G/DL (6.4-8.2); eGFR 62 ML/MIN
[2021-12-31] MEDS: acetaminophen 325mg tablet PO PRN (10:39)
[2021-12-31] MEDS: LORazepam 1 MG tablet PO PRN ×2 (10:39→21:16)
[2021-12-31 11:04] LABS: PLATELET ESTIMATE NORMAL; TOTAL CELLS COUNTED 100; TOXIC VACUOLATION 1+
[2021-12-31 11:11] VITALS: BP 148/96
[2021-12-31] MEDS ORDERED: baclofen 10mg tablet PO PRN (15:30)
[2021-12-31] MEDS: HYDROcodone/acetaminophen 5mg/325mg tablet PO PRN ×2 (17:47→23:03)
[2021-12-31] MEDS: hydrOXYzine 25 MG tablet PO PRN ×2 (17:47→23:03)
[2021-12-31 18:00] VITALS: BP 137/84
[2021-12-31] MEDS ORDERED: LORazepam 2 mg/ml vial IV PRN (18:00)
[2021-12-31 21:20] VITALS: BP 132/88
[2022-01-01] MEDS: chlordiazePOXIDE 25mg capsule PO SCH ×4 (02:10→20:00)
[2022-01-01 02:14] VITALS: BP 120/86
[2022-01-01] MEDS: HYDROcodone/acetaminophen 5mg/325mg tablet PO PRN ×3 (05:05→17:52)
[2022-01-01 06:00] VITALS: BP 132/96
[2022-01-01 06:49] LABS: BASOPHILS # (AUTO) 0.1 X10'3 (0-0.2); BASOPHILS % (AUTO) 0.9 % (0-1); EOSINOPHILS # (AUTO) 0.5 X10'3 (0-0.9); EOSINOPHILS % (AUTO) 4.1 % (0-6); HEMATOCRIT 31.1 % (35.0-45.0); HEMOGLOBIN 10.5 g/dl (12.0-16.0); LYMPHOCYTES # (AUTO) 2.4 X10'3 (1.1-4.8); LYMPHOCYTES % (AUTO) 21.8 % (21-51); MEAN CORPUSCULAR HEMOGLOBIN 28.6 PG (27.0-31.0); MEAN CORPUSCULAR HGB CONC 33.9 g/dL (33.0-36.5); MEAN CORPUSCULAR VOLUME 84.4 FL (78-98); MEAN PLATELET VOLUME 7.4 FL (7.4-10.4); MONOCYTES % (AUTO) 8.6 % (2-12); NEUTROPHILS # (AUTO) 7.2 X10'3 (1.8-7.7); NEUTROPHILS % (AUTO) 64.6 % (42-75); PLATELET COUNT 337 X10'3 (140-440); RED BLOOD COUNT 3.68 X10'6 (4.20-5.60); RED CELL DISTRIBUTION WIDTH 14.6 % (11.5-14.5); WHITE BLOOD COUNT 11.2 X10'3 (4.5-11.0)
[2022-01-01 07:23] LABS: TOTAL CELLS COUNTED 100
[2022-01-01 07:24] LABS: PLATELET ESTIMATE NORMAL
[2022-01-01 07:32] LABS: ALANINE AMINOTRANSFERASE 408 U/L (12-78); ALBUMIN 2.4 G/DL (3.4-5.0); ALBUMIN/GLOBULIN RATIO 0.9 (1.1-1.5); ALKALINE PHOSPHATASE 63 IU/L (46-116); ANION GAP 7 (8-16); ASPARTATE AMINO TRANSFERASE 175 U/L (10-37); BILIRUBIN,TOTAL 0.3 MG/DL (0.1-1.0); BLOOD UREA NITROGEN 11 MG/DL (7-18); BUN/CREATININE RATIO 12.1 (6.6-38.0); CALCIUM 8.2 MG/DL (8.5-10.1); CHLORIDE 109 MMOL/L (99-107); CREATININE 0.91 MG/DL (0.40-0.90); GLUCOSE 108 MG/DL (70-104); POTASSIUM 3.5 MMOL/L (3.5-5.1); SODIUM 140 MMOL/L (135-145); TOTAL CARBON DIOXIDE 24.3 MMOL/L (24-32); TOTAL PROTEIN 5.2 G/DL (6.4-8.2); eGFR 68 ML/MIN
[2022-01-01 07:47] LABS: CREATINE KINASE 1127 U/L (26-192)
[2022-01-01] MEDS: thiamine 100mg tablet PO SCH (08:14)
[2022-01-01] MEDS: famotidine 20mg tablet PO SCH (08:14)
[2022-01-01] MEDS: gabapentin 300mg capsule PO SCH (08:14)
[2022-01-01] MEDS: enoxaparin 40mg/0.4ml syringe SUBCUT SCH (08:15)
[2022-01-01] MEDS: nicotine 14mg patch - 24hr TD SCH (08:15)
--- NOTE | 2022-01-01 09:29 | NUR ---
Reassessment: Pt continues on Regular diet w/ avg intake 47% x 10 meals partially meeting needs. Pt can benefit from Ensure High protein TID to assist w/ meeting needs. Pt is noted to be having headaches which may effect desire to eat. [facility] 12/29. Will continue to monitor. Rec: 1. continue regular diet; encourage PO 2. Ensure High Protein TID; pending MD verification 3. routine thiamine, folic acid, and MVI for etoh 4. bowel care per rx 5. weekly wts Addendum: 01/01/22 at [address] Amended: Links added.
[2022-01-01 11:00] VITALS: BP 133/86
[2022-01-01] MEDS: LORazepam 1 MG tablet PO PRN (11:32)
[2022-01-01 15:00] VITALS: BP 150/98
[2022-01-01 18:00] VITALS: BP 134/74
--- NOTE | 2022-01-01 18:15 | NUR ---
Patient in room PCU 3010. I have received report from Glory RN and had the opportunity to ask questions and assume patient care.
--- NOTE | 2022-01-01 18:35 | NUR ---
Problems reprioritized. Patient report given, questions answered & plan of care reviewed with RACHNA Lan.
[2022-01-01] MEDS: sodium chloride 0.45% 1,000 ML IV SCH (19:59)
--- NOTE | 2022-01-01 20:11 | NUR ---
pt was resting and did not want to be disturbed for meds or assessment.
[2022-01-01 22:00] VITALS: BP 114/70
[2022-01-02] MEDS: HYDROcodone/acetaminophen 5mg/325mg tablet PO PRN ×5 (00:44→22:03)
[2022-01-02] MEDS: chlordiazePOXIDE 25mg capsule PO SCH ×4 (02:03→20:53)
[2022-01-02 06:00] VITALS: BP 123/74
--- NOTE | 2022-01-02 06:00 | NUR ---
REVIEWED PRODUCE ASSOCIATE ASSESSMENT AND IN AGREEMENT.
--- NOTE | 2022-01-02 06:10 | NUR ---
Problems reprioritized. Patient report given, questions answered & plan of care reviewed with Glory RN.
[2022-01-02] MEDS: enoxaparin 40mg/0.4ml syringe SUBCUT SCH (07:48)
[2022-01-02] MEDS: gabapentin 300mg capsule PO SCH (07:48)
[2022-01-02] MEDS: famotidine 20mg tablet PO SCH (07:48)
[2022-01-02] MEDS: thiamine 100mg tablet PO SCH (07:48)
[2022-01-02] MEDS: nicotine 14mg patch - 24hr TD SCH (07:49)
[2022-01-02 08:13] LABS: BASOPHILS # (AUTO) 0.1 X10'3 (0-0.2); BASOPHILS % (AUTO) 0.7 % (0-1); EOSINOPHILS # (AUTO) 0.4 X10'3 (0-0.9); EOSINOPHILS % (AUTO) 3.9 % (0-6); HEMATOCRIT 26.6 % (35.0-45.0); LYMPHOCYTES # (AUTO) 2.5 X10'3 (1.1-4.8); LYMPHOCYTES % (AUTO) 26.8 % (21-51); MEAN CORPUSCULAR HEMOGLOBIN 28.7 PG (27.0-31.0); MEAN CORPUSCULAR HGB CONC 33.7 g/dL (33.0-36.5); MEAN PLATELET VOLUME 7.3 FL (7.4-10.4); MONOCYTES # (AUTO) 0.7 X10'3 (0-0.9); NEUTROPHILS # (AUTO) 5.6 X10'3 (1.8-7.7); NEUTROPHILS % (AUTO) 60.6 % (42-75); PLATELET COUNT 389 X10'3 (140-440); RED BLOOD COUNT 3.13 X10'6 (4.20-5.60); RED CELL DISTRIBUTION WIDTH 15.1 % (11.5-14.5); WHITE BLOOD COUNT 9.2 X10'3 (4.5-11.0)
[2022-01-02 08:50] LABS: ALANINE AMINOTRANSFERASE 302 U/L (12-78); ALBUMIN 2.4 G/DL (3.4-5.0); ALBUMIN/GLOBULIN RATIO 0.9 (1.1-1.5); ALKALINE PHOSPHATASE 60 IU/L (46-116); ANION GAP 9 (8-16); ASPARTATE AMINO TRANSFERASE 97 U/L (10-37); BILIRUBIN,TOTAL 0.3 MG/DL (0.1-1.0); BLOOD UREA NITROGEN 12 MG/DL (7-18); BUN/CREATININE RATIO 12.5 (6.6-38.0); CALCIUM 8.1 MG/DL (8.5-10.1); CHLORIDE 110 MMOL/L (99-107); CREATINE KINASE 655 U/L (26-192); CREATININE 0.96 MG/DL (0.40-0.90); GLUCOSE 97 MG/DL (70-104); MAGNESIUM 1.9 MG/DL (1.5-2.4); POTASSIUM 3.6 MMOL/L (3.5-5.1); SODIUM 145 MMOL/L (135-145); TOTAL CARBON DIOXIDE 26.2 MMOL/L (24-32); TOTAL PROTEIN 5.2 G/DL (6.4-8.2); eGFR 64 ML/MIN
[2022-01-02] MEDS: hydrOXYzine 25 MG tablet PO PRN (10:10)
[2022-01-02 11:00] VITALS: BP 141/90
[2022-01-02 11:28] LABS: PLATELET ESTIMATE NORMAL; TOTAL CELLS COUNTED 100
[2022-01-02 11:29] LABS: ANISOCYTOSIS 1+
[2022-01-02 11:33] LABS: POLYCHROMASIA FEW
[2022-01-02] MEDS: sodium chloride 0.45% 1,000 ML IV SCH (12:46)
[2022-01-02 15:00] VITALS: BP 121/94
[2022-01-02 18:00] VITALS: BP 146/79
--- NOTE | 2022-01-02 18:15 | NUR ---
Problems reprioritized. Patient report given, questions answered & plan of care reviewed with RACHNA Lan.
--- NOTE | 2022-01-02 18:30 | NUR ---
Patient in room PCU 3010. I have received report from Glory RN and had the opportunity to ask questions and assume patient care.
[2022-01-02 22:00] VITALS: BP 140/98
--- NOTE | 2022-01-02 22:30 | NUR ---
Page Sent PAGER ID: [phone] MESSAGE: [id number]: Sanjuanita Liu: Pt requesting RX for melatonin for sleep. Thank you Edyta HERNANDEZ, ext [phone]
--- NOTE | 2022-01-02 22:59 | NUR ---
Called Dr Acevedo who ordered melatonin 3mg po hs prn sleep.
[2022-01-02] MEDS: Melatonin 3mg tablet PO PRN (23:24)
[2022-01-03 02:00] VITALS: BP 117/79
[2022-01-03] MEDS: chlordiazePOXIDE 25mg capsule PO SCH ×4 (02:57→20:09)
[2022-01-03] MEDS: HYDROcodone/acetaminophen 5mg/325mg tablet PO PRN ×5 (03:06→21:41)
[2022-01-03 06:00] VITALS: BP 136/82
[2022-01-03 06:34] LABS: BASOPHILS # (AUTO) 0.1 X10'3 (0-0.2); BASOPHILS % (AUTO) 0.6 % (0-1); EOSINOPHILS # (AUTO) 0.3 X10'3 (0-0.9); EOSINOPHILS % (AUTO) 3.2 % (0-6); HEMOGLOBIN 8.2 g/dl (12.0-16.0); LYMPHOCYTES # (AUTO) 2.7 X10'3 (1.1-4.8); LYMPHOCYTES % (AUTO) 28.3 % (21-51); MEAN CORPUSCULAR HEMOGLOBIN 29.2 PG (27.0-31.0); MEAN CORPUSCULAR HGB CONC 34.2 g/dL (33.0-36.5); MEAN CORPUSCULAR VOLUME 85.3 FL (78-98); MEAN PLATELET VOLUME 7.1 FL (7.4-10.4); MONOCYTES # (AUTO) 0.7 X10'3 (0-0.9); MONOCYTES % (AUTO) 6.9 % (2-12); NEUTROPHILS # (AUTO) 5.8 X10'3 (1.8-7.7); PLATELET COUNT 402 X10'3 (140-440); RED BLOOD COUNT 2.82 X10'6 (4.20-5.60); RED CELL DISTRIBUTION WIDTH 15.1 % (11.5-14.5); WHITE BLOOD COUNT 9.5 X10'3 (4.5-11.0)
--- NOTE | 2022-01-03 06:34 | NUR ---
REVIEWED HAZARDOUS WASTE MATERIAL TECHNICIAN ASSESSMENT AND IN AGREEMENT.
--- NOTE | 2022-01-03 06:48 | NUR ---
Problems reprioritized. Patient report given, questions answered & plan of care reviewed with Mel BRISCOE.
[2022-01-03 06:55] LABS: ALANINE AMINOTRANSFERASE 235 U/L (12-78); ALBUMIN 2.3 G/DL (3.4-5.0); ALBUMIN/GLOBULIN RATIO 0.9 (1.1-1.5); ALKALINE PHOSPHATASE 50 IU/L (46-116); ANION GAP 7 (8-16); ASPARTATE AMINO TRANSFERASE 66 U/L (10-37); BILIRUBIN,TOTAL 0.3 MG/DL (0.1-1.0); BLOOD UREA NITROGEN 9 MG/DL (7-18); BUN/CREATININE RATIO 10.1 (6.6-38.0); CALCIUM 7.9 MG/DL (8.5-10.1); CHLORIDE 112 MMOL/L (99-107); CREATINE KINASE 465 U/L (26-192); CREATININE 0.89 MG/DL (0.40-0.90); GLUCOSE 97 MG/DL (70-104); MAGNESIUM 1.9 MG/DL (1.5-2.4); PHOSPHORUS 4.2 MG/DL (2.3-4.5); POTASSIUM 3.3 MMOL/L (3.5-5.1); SODIUM 143 MMOL/L (135-145); TOTAL CARBON DIOXIDE 23.9 MMOL/L (24-32); TOTAL PROTEIN 4.8 G/DL (6.4-8.2); eGFR 70 ML/MIN
[2022-01-03 07:09] LABS: TOTAL CELLS COUNTED 100
[2022-01-03 07:10] LABS: PLATELET ESTIMATE NORMAL; POLYCHROMASIA 1+
[2022-01-03] MEDS: thiamine 100mg tablet PO SCH (07:25)
[2022-01-03] MEDS: gabapentin 300mg capsule PO SCH (07:25)
[2022-01-03] MEDS: famotidine 20mg tablet PO SCH (07:25)
[2022-01-03] MEDS: nicotine 14mg patch - 24hr TD SCH (07:25)
[2022-01-03] MEDS: enoxaparin 40mg/0.4ml syringe SUBCUT SCH (07:26)
[2022-01-03] MEDS: potassium Cl 20 mEq SR tablet PO PRN ×2 (07:26→20:09)
[2022-01-03 11:00] VITALS: BP 123/69
[2022-01-03 15:00] VITALS: BP 133/77
[2022-01-03 18:00] VITALS: BP 144/69
[2022-01-03] MEDS ORDERED: furosemide 10 MG/1 ML 10ml inj IV ONE (18:00)
[2022-01-03] MEDS ORDERED: PERFLUTREN PROTEIN-A MICROSPHR (Optison) 0.22 MG/ML 3ML VIAL IV ONE (18:00)
--- NOTE | 2022-01-03 18:30 | NUR ---
Patient in room PCU 3010. I have received report from Mel BRISCOE and had the opportunity to ask questions and assume patient care.
--- NOTE | 2022-01-03 18:31 | NUR ---
Problems reprioritized. Patient report given, questions answered & plan of care reviewed with Edyta LESTER.
[2022-01-03] MEDS: Melatonin 3mg tablet PO PRN (20:08)
[2022-01-03] MEDS: LORazepam 1 MG tablet PO PRN (20:09)
[2022-01-03 22:00] VITALS: BP 128/87
[2022-01-04 02:00] VITALS: BP 137/75
[2022-01-04] MEDS: HYDROcodone/acetaminophen 5mg/325mg tablet PO PRN ×5 (02:14→20:23)
[2022-01-04] MEDS: potassium Cl 20 mEq SR tablet PO PRN (02:14)
[2022-01-04] MEDS: chlordiazePOXIDE 25mg capsule PO SCH ×4 (02:14→20:22)
--- NOTE | 2022-01-04 04:22 | NUR ---
AGREE WITH METAL POURER PHYSICAL ASSESSMENT. PT DENIES SUICIDAL IDEATIONS AT THIS TIME.
[2022-01-04 06:00] VITALS: BP 129/76
--- NOTE | 2022-01-04 06:30 | NUR ---
Problems reprioritized. Patient report given, questions answered & plan of care reviewed with Mel BRISCOE.
[2022-01-04 06:45] LABS: BASOPHILS % (AUTO) 0.6 % (0-1); EOSINOPHILS # (AUTO) 0.2 X10'3 (0-0.9); HEMATOCRIT 23.3 % (35.0-45.0); HEMOGLOBIN 7.9 g/dl (12.0-16.0); LYMPHOCYTES % (AUTO) 25.3 % (21-51); MEAN CORPUSCULAR HEMOGLOBIN 28.9 PG (27.0-31.0); MEAN CORPUSCULAR HGB CONC 33.8 g/dL (33.0-36.5); MEAN CORPUSCULAR VOLUME 85.4 FL (78-98); MEAN PLATELET VOLUME 6.9 FL (7.4-10.4); MONOCYTES # (AUTO) 0.5 X10'3 (0-0.9); MONOCYTES % (AUTO) 5.9 % (2-12); NEUTROPHILS # (AUTO) 5.2 X10'3 (1.8-7.7); NEUTROPHILS % (AUTO) 65.2 % (42-75); PLATELET COUNT 448 X10'3 (140-440); RED BLOOD COUNT 2.73 X10'6 (4.20-5.60); RED CELL DISTRIBUTION WIDTH 15.5 % (11.5-14.5); WHITE BLOOD COUNT 7.9 X10'3 (4.5-11.0)
[2022-01-04 06:51] LABS: ALANINE AMINOTRANSFERASE 207 U/L (12-78); ALBUMIN 2.4 G/DL (3.4-5.0); ALBUMIN/GLOBULIN RATIO 0.9 (1.1-1.5); ALKALINE PHOSPHATASE 70 IU/L (46-116); ANION GAP 7 (8-16); ASPARTATE AMINO TRANSFERASE 61 U/L (10-37); BILIRUBIN,TOTAL 0.2 MG/DL (0.1-1.0); BLOOD UREA NITROGEN 9 MG/DL (7-18); BUN/CREATININE RATIO 10.8 (6.6-38.0); CALCIUM 8.1 MG/DL (8.5-10.1); CHLORIDE 110 MMOL/L (99-107); CREATINE KINASE 390 U/L (26-192); CREATININE 0.83 MG/DL (0.40-0.90); GLUCOSE 89 MG/DL (70-104); MAGNESIUM 1.8 MG/DL (1.5-2.4); PHOSPHORUS 4.6 MG/DL (2.3-4.5); POTASSIUM 3.6 MMOL/L (3.5-5.1); SODIUM 142 MMOL/L (135-145); TOTAL CARBON DIOXIDE 25.3 MMOL/L (24-32); TOTAL PROTEIN 5.1 G/DL (6.4-8.2); eGFR 75 ML/MIN
[2022-01-04] MEDS: gabapentin 300mg capsule PO SCH (07:13)
[2022-01-04] MEDS: folic acid 1mg tablet PO SCH (07:14)
[2022-01-04] MEDS: thiamine 100mg tablet PO SCH (07:14)
[2022-01-04] MEDS: multivitamins, therapeutics tablet PO SCH (07:14)
[2022-01-04] MEDS: enoxaparin 40mg/0.4ml syringe SUBCUT SCH (07:15)
[2022-01-04] MEDS: furosemide 40mg/4ml inj IV SCH ×2 (07:15→20:22)
[2022-01-04] MEDS: nicotine 14mg patch - 24hr TD SCH (07:15)
[2022-01-04] MEDS: famotidine 20mg tablet PO SCH (07:15)
[2022-01-04] MEDS: LORazepam 1 MG tablet PO PRN ×2 (07:17→20:23)
[2022-01-04 09:51] LABS: PLATELET ESTIMATE INCREASED; POLYCHROMASIA 1+; TOTAL CELLS COUNTED 100
[2022-01-04 09:52] LABS: SCHISTOCYTES FEW
[2022-01-04 11:00] VITALS: BP 125/77
--- NOTE | 2022-01-04 11:35 | NUR ---
Message: [phone] would like something for herpes on back, c/o itching would like topical cream. thank you, Mel BRISCOE PCU
[2022-01-04 15:00] VITALS: BP 127/84
[2022-01-04 18:30] VITALS: BP 128/78
[2022-01-04] MEDS: Melatonin 3mg tablet PO PRN (20:24)
[2022-01-04 22:00] VITALS: BP 130/77
[2022-01-05] MEDS: HYDROcodone/acetaminophen 5mg/325mg tablet PO PRN ×5 (00:19→17:16)
[2022-01-05 02:00] VITALS: BP 109/55
[2022-01-05] MEDS: chlordiazePOXIDE 25mg capsule PO SCH ×3 (02:00→13:02)
[2022-01-05 06:00] VITALS: BP 153/77
[2022-01-05 06:09] LABS: BASOPHILS % (AUTO) 0.4 % (0-1); EOSINOPHILS # (AUTO) 0.2 X10'3 (0-0.9); EOSINOPHILS % (AUTO) 2.4 % (0-6); HEMATOCRIT 25.7 % (35.0-45.0); HEMOGLOBIN 8.7 g/dl (12.0-16.0); LYMPHOCYTES # (AUTO) 2.3 X10'3 (1.1-4.8); LYMPHOCYTES % (AUTO) 31.8 % (21-51); MEAN CORPUSCULAR HEMOGLOBIN 29.2 PG (27.0-31.0); MEAN CORPUSCULAR HGB CONC 33.9 g/dL (33.0-36.5); MEAN CORPUSCULAR VOLUME 86.1 FL (78-98); MEAN PLATELET VOLUME 6.7 FL (7.4-10.4); MONOCYTES # (AUTO) 0.5 X10'3 (0-0.9); MONOCYTES % (AUTO) 6.2 % (2-12); NEUTROPHILS # (AUTO) 4.3 X10'3 (1.8-7.7); NEUTROPHILS % (AUTO) 59.2 % (42-75); PLATELET COUNT 567 X10'3 (140-440); RED BLOOD COUNT 2.99 X10'6 (4.20-5.60); RED CELL DISTRIBUTION WIDTH 16.1 % (11.5-14.5); WHITE BLOOD COUNT 7.3 X10'3 (4.5-11.0)
--- NOTE | 2022-01-05 06:23 | NUR ---
Problems reprioritized. Patient report given, questions answered & plan of care reviewed with MARTI. Addendum: 01/05/22 at 0623 by Tmomy Rose RN Amended: Links added.
[2022-01-05 06:31] LABS: ALANINE AMINOTRANSFERASE 199 U/L (12-78); ALKALINE PHOSPHATASE 85 IU/L (46-116); ANION GAP 8 (8-16); ASPARTATE AMINO TRANSFERASE 55 U/L (10-37); BILIRUBIN,TOTAL 0.3 MG/DL (0.1-1.0); BLOOD UREA NITROGEN 7 MG/DL (7-18); BUN/CREATININE RATIO 7.9 (6.6-38.0); CALCIUM 8.4 MG/DL (8.5-10.1); CHLORIDE 105 MMOL/L (99-107); CREATINE KINASE 384 U/L (26-192); CREATININE 0.89 MG/DL (0.40-0.90); GLUCOSE 109 MG/DL (70-104); MAGNESIUM 1.7 MG/DL (1.5-2.4); PHOSPHORUS 4.4 MG/DL (2.3-4.5); POTASSIUM 3.5 MMOL/L (3.5-5.1); SODIUM 140 MMOL/L (135-145); TOTAL CARBON DIOXIDE 27.4 MMOL/L (24-32); TOTAL PROTEIN 5.9 G/DL (6.4-8.2); eGFR 70 ML/MIN
[2022-01-05] MEDS: furosemide 40mg/4ml inj IV SCH (08:39)
[2022-01-05] MEDS: folic acid 1mg tablet PO SCH (08:41)
[2022-01-05] MEDS: famotidine 20mg tablet PO SCH (08:42)
[2022-01-05] MEDS: gabapentin 300mg capsule PO SCH (08:42)
[2022-01-05] MEDS: multivitamins, therapeutics tablet PO SCH (08:43)
[2022-01-05] MEDS: thiamine 100mg tablet PO SCH (08:43)
[2022-01-05] MEDS: enoxaparin 40mg/0.4ml syringe SUBCUT SCH (08:47)
[2022-01-05] MEDS: nicotine 14mg patch - 24hr TD SCH (08:50)
--- NOTE | 2022-01-05 09:02 | NUR ---
Reassessment: Pt continues on Regular diet w/ great improvement in PO intake, now mostly 100% of meals meeting est needs. ONS remains unverified in EMR though may no longer be needed if pt continues w/ current PO trends. [facility] 01/04. Will continue to monitor. Rec: 1. continue regular diet; encourage PO 2. Ensure High Protein TID; pending MD verification; may not be needed if pt continues w/ current PO trends 3. routine thiamine, folic acid, and MVI for etoh 4. bowel care per rx 5. weekly wts Addendum: 01/05/22 at [address] Amended: Links added.
--- NOTE | 2022-01-05 09:37 | NUR ---
Message: JAZMÍN ON [email or web address], FYI, [facility] CALLED AND IS READY TO ACCEPT 3010 ONCE DISCHARGE IS WRITTEN. [facility] REPORT IS IN PAPER CHART FOR YOUR REVIEW, THANK YOU.
[2022-01-05 11:00] VITALS: BP 109/62
[2022-01-05] MEDS ORDERED: THIA50TA10 PO ×2 (11:57→20:43)
[2022-01-05] MEDS ORDERED: MULT-25 PO (11:57)
[2022-01-05] MEDS ORDERED: FOLI0.4T6 PO ×2 (11:57→20:43)
--- NOTE | 2022-01-05 14:49 | NUR ---
Report called to charge nurse for Bc BRISCOE who will assuming care of patient on psych unit.
[2022-01-05] MEDS: acetaminophen 325mg tablet PO PRN (14:56)
[2022-01-05 14:57] VITALS: BP 125/87
[2022-01-05] MEDS ORDERED: MULT400T5 PO (20:43)
== END 2022-01-05 19:30 | DRG 720 ==
LOC: ER 20:18 → EDBEDREQ 22:56 → UNDOADMIN 22:57 → ED HOLD 22:57 → ICU 2S 23:54 → ED HOLD 23:54 → ICU 2S 12-24 00:52 → ED HOLD 12-24 00:52 → PCU 3S 12-28 17:46
PROVIDERS: ADMIT Internal Medicine; ATTEND Internal Medicine Critical Care Medicine
PROC: 5A1D70Z Performance of Urinary Filtration, Intermittent, Less than 6 Hours Per Day (ICD-10-PCS; principal; 2021-12-25)
PROC: 5A1D70Z Performance of Urinary Filtration, Intermittent, Less than 6 Hours Per Day (ICD-10-PCS; 2021-12-26)
DX: A41.9 Sepsis, unspecified organism (principal); I46.9 Cardiac arrest, cause unspecified; K72.00 Acute and subacute hepatic failure without coma; N17.0 Acute kidney failure with tubular necrosis; R65.21 Severe sepsis with septic shock; R34 Anuria and oliguria; M62.82 Rhabdomyolysis; T43.592A Poisoning by other antipsychotics and neuroleptics, intentional self-harm, initial encounter; G92.8 Other toxic encephalopathy; Z20.822 Contact with and (suspected) exposure to COVID-19; F29 Unspecified psychosis not due to a substance or known physiological condition; F10.929 Alcohol use, unspecified with intoxication, unspecified; R60.0 Localized edema; R31.9 Hematuria, unspecified; R74.01 Elevation of levels of liver transaminase levels; F31.9 Bipolar disorder, unspecified; Z16.24 Resistance to multiple antibiotics; B96.20 Unspecified Escherichia coli [E. coli] as the cause of diseases classified elsewhere; F25.9 Schizoaffective disorder, unspecified; G44.209 Tension-type headache, unspecified, not intractable; E87.0 Hyperosmolality and hypernatremia; E87.6 Hypokalemia; E87.20 Acidosis, unspecified; S00.81XA Abrasion of other part of head, initial encounter; F43.10 Post-traumatic stress disorder, unspecified; N39.0 Urinary tract infection, site not specified; F41.9 Anxiety disorder, unspecified; R79.89 Other specified abnormal findings of blood chemistry; Y92.098 Other place in other non-institutional residence as the place of occurrence of the external cause; Z78.1 Physical restraint status
CPT/HCPCS: 36415; 70450; 71045; 74018; 80053; 80178; 80305; 80320; 80329; 81001; 82550; 82570; 82948; 83605; 83735; 84100; 84145; 84300; 84439; 84443; 85007; 85025; 85610; 85730; 87077; 87081; 87088; 87186; 87207; 87340; 87811; 93005; 93306; 93925; 93970; 94799; 97110; 97116; 97161; 97530; 97542; 99291; 99292; A4615; A6209; A6212; A6213; A6258; A6260; A6402; A6449; C1752; C1758; G0257; G0378; J0696; J0780; J1644; J1650; J1940; J2405; J2543; J3370; J3411; J3490; J7030; J7040; J7121; P9047; Q0177

== ENCOUNTER 2022-05-03 11:08 | Emergency (ER) | payer MEDICAID ==
[~2022-05-03] VITALS: Ht 157.5 cm; Wt 61.0 kg
[~2022-05-03 11:08] MED LIST: FOLI0.4T6 PO; GABA-534 PO; HYDR-3686 PO; MULT400T5 PO; NICO-687 TD; NYST15OI14 TP; PRAZ5CAP2 PO; THIA50TA10 PO; TRAZ-251 PO; VORT10TA PO
[2022-05-03 11:11] VITALS: BP 129/83
[2022-05-03] MEDS ORDERED: VORT10TA PO (13:39)
[2022-05-03] MEDS ORDERED: TRAZ-251 PO (13:39)
[2022-05-03] MEDS ORDERED: PRAZ5CAP2 PO (13:39)
== END 2022-05-03 13:48 | disposition home or self-care (01) ==
LOC: ER 11:08
DX: F32.9 Major depressive disorder, single episode, unspecified (principal); Z79.899 Other long term (current) drug therapy
CPT/HCPCS: 99281

== ENCOUNTER 2022-05-25 08:20 | Emergency (ER) | payer MEDICAID ==
[~2022-05-25] VITALS: Ht 157.5 cm; Wt 65.0 kg
[~2022-05-25 08:20] MED LIST changes: -FOLI0.4T6 PO; -GABA-534 PO; -MULT400T5 PO; +NICO-907 BC; -NYST15OI14 TP; +RISP0.5T65 PO; +RISP1TAB98 PO; -THIA50TA10 PO; +TIZA-205 PO; -TRAZ-251 PO; +TRAZ-256 PO
[2022-05-25 08:27] VITALS: BP 128/89
[2022-05-25] MEDS ORDERED: ketorolac trometh inj. 60 MG/2 ML VIAL IM ONE (12:00)
[2022-05-26] MEDS ORDERED: CYCL-1 PO (10:39)
[2022-05-26] MEDS ORDERED: NAPR-56 PO (10:39)
== END 2022-05-25 12:24 | disposition home or self-care (01) ==
LOC: ER 08:21
DX: M54.50 Low back pain, unspecified (principal); F31.9 Bipolar disorder, unspecified; F41.9 Anxiety disorder, unspecified; Z79.899 Other long term (current) drug therapy
CPT/HCPCS: 96372; 99283; J1885

== ENCOUNTER 2022-05-26 10:04 | Emergency (ER) | payer MEDICAID ==
[~2022-05-26] VITALS: Ht 157.5 cm; Wt 65.5 kg
[2022-05-26 10:39] VITALS: BP 114/83
[2022-05-26] MEDS ORDERED: CYCL-1 PO (10:39)
[2022-05-26] MEDS ORDERED: NAPR-56 PO (10:39)
[2022-05-26] MEDS ORDERED: orphenadrine citrate 60mg/2ml inj. IM ONE (10:40)
== END 2022-05-26 11:13 | disposition home or self-care (01) ==
LOC: ER 10:04
DX: M54.2 Cervicalgia (principal); M54.50 Low back pain, unspecified; G89.29 Other chronic pain; F41.9 Anxiety disorder, unspecified; F31.9 Bipolar disorder, unspecified; Z79.899 Other long term (current) drug therapy
CPT/HCPCS: 96372; 99284; J2360